=== PATIENT | male | born 1985 | race Caucasian/White ===

== ENCOUNTER 2017-05-21 08:57 | Emergency (ER) | payer SELFPAY ==
--- NOTE | ~2017-05-21 | ER ---
PATIENT'S NAME: JAMES SANDOVAL [facility] AGE: 32 Y [address] ROOM: [place] [id number] LOCATION: [facility] ADMIT DATE: 05/21/2017 ER/Outpatient Report DISCHARGE DATE: 05/21/2017 FAMILY PHYSICIAN: Brock Kirkland MD ATTENDING PHYSICIAN: Salvador Chakraborty CHIEF COMPLAINT: Foreign body sensation in the right eye. HISTORY OF PRESENT ILLNESS: The patient states that yesterday afternoon, he was working when he got some sawdust in his right eye. It has been itchy and scratchy and uncomfortable since then. He has tried flushing it out several times. It was uncomfortable at night. This morning, it continued to bother him, so he came in for evaluation. He has never had anything like this before. He states he has no other things that he does with his eyes. He has no corrective lenses that he uses. He does not know what his baseline vision is. PAST MEDICAL HISTORY: Documented on the record and have been reviewed by me. SOCIAL HISTORY: Documented on the record and have been reviewed by me. MEDICATIONS: Documented on the record and have been reviewed by me. ALLERGIES: DOCUMENTED ON THE RECORD AND HAVE BEEN REVIEWED BY ME. REVIEW OF SYSTEMS: All systems were reviewed and negative except as noted in the HPI. PHYSICAL EXAMINATION: VITAL SIGNS: Blood pressure 130/78, pulse 64, respiratory rate 16, temperature 96.8, SpO2 is 96% on room air. NEUROLOGIC: Awake and alert. GCS 15. No focal deficits. No asymmetry. HEENT: Normocephalic, atraumatic. The eyes are PERRL. The right sclera is slightly injected, poorly localized. No edema appreciated. Extraocular movements are intact. Fluorescein exam does not reveal any abnormalities. The eye exam itself does not reveal any hypopyon or hyphema. Visual acuity is 20/70 OD, 20/30 OS, and 20/30 OU. Oropharynx is clear. NECK: Supple. Trachea is midline. CHEST: Even and unlabored respirations. HEART: Regular rate. PATIENT'S NAME: JAMES SANDOVAL [facility] AGE: 32 Y [address] ROOM: [place] [id number] LOCATION: [facility] ADMIT DATE: 05/21/2017 ER/Outpatient Report DISCHARGE DATE: 05/21/2017 FAMILY PHYSICIAN: Brock Kirkland MD ATTENDING PHYSICIAN: Salvador Chakraborty SKIN: Clean, dry, and intact. LABORATORY DATA: Labs and x-rays, none. IMPRESSION: Ocular foreign body sensation without findings. EMERGENCY DEPARTMENT COURSE: The patient was seen and evaluated. His presentation is not consistent with acute angle closure glaucoma or intra-ocular foreign body. The fluorescein exam was negative. The patient had significant symptom relief after fluorescein. No corneal foreign bodies or corneal abrasions were observed. The patient did have some decreased vision in that eye. The exact etiology is unclear. Recommend Polytrim drops and follow up on Wednesday if not markedly improved. The patient is to return for any significant increase in pain or worsening of vision. SALVADOR CHAKRABORTY MD /modl /[id number] d: 05/21/17 1019 t: 05/24/17 0710, OUTPATIENT REPORT
== END 2017-05-21 09:22 | disposition disaster alternative care site (69) ==
LOC: GACC 08:57
DX: H57.8 Other specified disorders of eye and adnexa (principal); F17.210 Nicotine dependence, cigarettes, uncomplicated; F41.9 Anxiety disorder, unspecified